=== PATIENT | female | born 1990 | race Caucasian/White ===

== ENCOUNTER 2018-11-14 14:32 | Day surgery (SDC) | payer OTHER ==
[2018-11-14 15:05] VITALS: BP 119/81
[2018-11-14] MEDS ORDERED: TRAM50TA2 PO (15:08)
[2018-11-14] MEDS ORDERED: GABA-532 PO (15:08)
[2018-11-14] MEDS ORDERED: METO-395 PO (15:08)
[2018-11-14] MEDS ORDERED: LIDOcaine 1% (10mg/ml)w/preservative injection 20ml MDV ONE (17:31)
[2018-11-14] MEDS ORDERED: lidocaine 1%/epinephrine 1:100,000 injection 50ml vial ONE (17:36)
[2018-11-14 18:20] VITALS: BP 132/95
[2018-11-14 18:35] VITALS: BP 129/86
== END 2018-11-14 18:45 | disposition home or self-care (01) ==
LOC: SSTAY O 14:32
PROVIDERS: ATTEND Internal Medicine Interventional Cardiology
DX: I47.1 Supraventricular tachycardia (principal); G89.29 Other chronic pain; F32.9 Major depressive disorder, single episode, unspecified; G62.9 Polyneuropathy, unspecified; Z88.5 Allergy status to narcotic agent; Z88.6 Allergy status to analgesic agent; Z96.611 Presence of right artificial shoulder joint; Z72.89 Other problems related to lifestyle; Z87.39 Personal history of other diseases of the musculoskeletal system and connective tissue; Z79.891 Long term (current) use of opiate analgesic; Z79.899 Other long term (current) drug therapy
CPT/HCPCS: 33282; 93005; A6449; C1764; J2001; J3490